=== PATIENT | male | born 1970 | race Caucasian/White ===

== ENCOUNTER → 2017-07-24 | Outpatient (CLI) | payer OTHER | END | disposition home or self-care (01) | LOC: MRI 07:48 | DX: M51.27 Other intervertebral disc displacement, lumbosacral region (principal); M48.061 Spinal stenosis, lumbar region without neurogenic claudication; S39.012A Strain of muscle, fascia and tendon of lower back, initial encounter; X58.XXXA Exposure to other specified factors, initial encounter; Y93.89 Activity, other specified; Y92.89 Other specified places as the place of occurrence of the external cause; Y99.8 Other external cause status | CPT/HCPCS: 72148 ==

== ENCOUNTER → 2018-05-27 | Outpatient (CLI) | payer OTHER ==
[~2018-05-27] MED LIST: GADOBENATE DIMEGLUMINE 529 MG/ML 10ML IV ONE
== END | disposition home or self-care (01) ==
LOC: MRI 07:42
PROVIDERS: ATTEND Emergency Medicine
DX: S46.812A Strain of other muscles, fascia and tendons at shoulder and upper arm level, left arm, initial encounter (principal); S46.811A Strain of other muscles, fascia and tendons at shoulder and upper arm level, right arm, initial encounter; M67.432 Ganglion, left wrist; M67.431 Ganglion, right wrist; M48.02 Spinal stenosis, cervical region; M65.842 Other synovitis and tenosynovitis, left hand; M65.841 Other synovitis and tenosynovitis, right hand; S53.402A Unspecified sprain of left elbow, initial encounter; S53.401A Unspecified sprain of right elbow, initial encounter; X58.XXXA Exposure to other specified factors, initial encounter; Y93.89 Activity, other specified; Y92.89 Other specified places as the place of occurrence of the external cause; Y99.8 Other external cause status
CPT/HCPCS: 72156; 73220; 73221; A9577

== ENCOUNTER 2019-11-29 06:12 | Emergency (ER) | payer BC, OTHER ==
[~2019-11-29] VITALS: Ht 180.3 cm; Wt 80.0 kg
[2019-11-29 09:35] LABS: BASOPHILS % 0.9 % (0.0-2.0); EOSINOPHILS % 2.9 % (0.0-5.0); HEMATOCRIT. 43.1 % (42.0-52.0); HEMOGLOBIN. 14.7 g/dL (14.0-18.0); LYMPHOCYTES % 40.6 % (20.0-50.0); MEAN CORPUSCULAR HEMOGLOBIN 31.6 pg (28.0-32.0); MEAN CORPUSCULAR VOLUME 92.5 fL (80.0-94.0); MEAN PLATELET VOLUME 9.4 fl (7.4-10.4); MONOCYTES % 9.5 % (2.0-8.0); NEUTROPHILS % 46.1 % (40.0-76.0); PLATELET 187 x1000/uL (130-400); RED BLOOD CELL COUNT 4.66 mill/uL (4.7-6.1); RED CELL DISTRIBUTION WIDTH 13.3 % (11.6-14.6)
[2019-11-29 09:44] LABS: CHLORIDE 108 mEq/L (98-107)
[2019-11-29 10:00] VITALS: BP 113/60
== END 2019-11-29 10:47 | disposition home or self-care (01) ==
LOC: ER 06:12
DX: R06.02 Shortness of breath (principal); R07.89 Other chest pain
CPT/HCPCS: 36415; 71045; 80053; 84484; 85025; 85379; 93005; 99285

== ENCOUNTER → 2020-04-10 | Outpatient (CLI) | payer OTHER | END | disposition home or self-care (01) | LOC: MRI 07:37 | PROVIDERS: ATTEND Emergency Medicine | DX: S39.012D Strain of muscle, fascia and tendon of lower back, subsequent encounter (principal); M47.817 Spondylosis without myelopathy or radiculopathy, lumbosacral region; M51.27 Other intervertebral disc displacement, lumbosacral region; X58.XXXD Exposure to other specified factors, subsequent encounter | CPT/HCPCS: 72148 ==

== ENCOUNTER → 2020-07-23 | Outpatient (CLI) | payer BC ==
[2020-07-23 07:25] LABS: CLARITY URINE CLEAR (CLEAR); COLOR URINE YELLOW (YELLOW); KETONES URINE NEGATIVE (NEGATIVE); LEUKOCYTE ESTERASE URINE NEGATIVE (NEGATIVE); NITRITE URINE NEGATIVE (NEGATIVE); OCCULT BLOOD URINE NEGATIVE (NEGATIVE); PH URINE 5.5 (4.5-8.0); PROTEIN URINE NEGATIVE (NEGATIVE); SPECIFIC GRAVITY URINE 1.018 (1.005-1.030); UROBILINOGEN URINE 0.2 E.U./dL (0.2-1.0)
[2020-07-23 07:44] LABS: CHLORIDE 105 mEq/L (98-107)
[2020-07-23 08:02] LABS: HDL CHOLESTEROL 76 mg/dL (40-59); LDL CHOLESTEROL 76 mg/dL (5-100)
[2020-07-23 08:41] LABS: BASOPHILS % 0.9 % (0.0-2.0); EOSINOPHILS % 5.7 % (0.0-5.0); HEMATOCRIT. 43.2 % (42.0-52.0); HEMOGLOBIN. 14.3 g/dL (14.0-18.0); MEAN CORPUSCULAR HEMOGLOBIN 30.8 pg (28.0-32.0); MEAN PLATELET VOLUME 9.1 fl (7.4-10.4); MONOCYTES % 8.5 % (2.0-8.0); NEUTROPHILS % 48.9 % (40.0-76.0); PLATELET 220 x1000/uL (130-400); RED BLOOD CELL COUNT 4.64 mill/uL (4.7-6.1); RED CELL DISTRIBUTION WIDTH 13.8 % (11.6-14.6)
== END | disposition home or self-care (01) ==
LOC: LAB 06:39
PROVIDERS: ATTEND Internal Medicine Nephrology
DX: N28.9 Disorder of kidney and ureter, unspecified (principal)
CPT/HCPCS: 36415; 80053; 80061; 81003; 85025; 86038

== ENCOUNTER 2021-09-01 19:16 | Emergency (ER) | payer BC ==
[~2021-09-01] VITALS: Ht 180.3 cm; Wt 155.0 kg
[~2021-09-01 19:16] MED LIST changes: +BENTYL; -GADOBENATE DIMEGLUMINE 529 MG/ML 10ML IV ONE; +VITAMINS
[2021-09-01 19:38] VITALS: BP 116/72
[2021-09-01] MEDS ORDERED: LIDOCAINE HCL/PF 1% 10 MG/ML 5ML VIAL INFIL ONE (20:00)
[2021-09-01] MEDS ORDERED: LIDOCAINE HCL 1% 20ML VIAL (Pyxis) INJ INFIL NR (20:00)
[2021-09-01] MEDS ORDERED: BACITRACIN ZINC OINT UDPKT TOP ONE (20:00)
[2021-09-01] MEDS ORDERED: TETANUS, DIPHTHERIA, PERTUSSIS VAC/PF 0.5ML (>10YR OLD) IM ONE (20:00)
== END 2021-09-01 20:53 | disposition home or self-care (01) ==
LOC: ER 19:16
DX: S61.211A Laceration without foreign body of left index finger without damage to nail, initial encounter (principal); W26.8XXA Contact with other sharp object(s), not elsewhere classified, initial encounter; Y93.89 Activity, other specified; Y92.89 Other specified places as the place of occurrence of the external cause; Y99.8 Other external cause status; Z98.890 Other specified postprocedural states
CPT/HCPCS: 12001; 73140; 90471; 90715; 99283; J3490